=== PATIENT | male | born 1990 | race Caucasian/White ===

== ENCOUNTER 2023-05-29 15:50 | Emergency (ER) | payer BC, SELFPAY ==
[2023-05-29] MEDS ORDERED: Ketorolac Tromethamine 30 MG/ML VIAL ONE (16:46)
[2023-05-29] MEDS ORDERED: Ibuprofen 800 MG TAB ONE (16:55)
== END 2023-05-29 17:10 | disposition home or self-care (01) ==
LOC: CSHERS 15:50
DX: S80.811A Abrasion, right lower leg, initial encounter (principal); W18.42XA Slipping, tripping and stumbling without falling due to stepping into hole or opening, initial encounter
CPT/HCPCS: J1885